=== PATIENT | female | born 1980 | race Caucasian/White ===

== ENCOUNTER 2016-09-10 19:33 | Emergency (ER) | payer BC ==
[~2016-09-10] VITALS: Ht 162.6 cm; Wt 70.3 kg
[2016-09-10 20:02] VITALS: BP 124/90
[2016-09-10] MEDS ORDERED: HYDROCODONE/APAP 10/325MG 1 EA TABLET PO ONE (20:30)
[2016-09-10] MEDS ORDERED: SILVER SULFADIAZINE CREAM 25 GM TUBE TP ONE (20:30)
[2016-09-10] MEDS ORDERED: GENTAMICIN 0.1% OINT 15 GM TUBE TP ONE (20:30)
[2016-09-10] MEDS ORDERED: SILVER SULFADIAZINE CREAM 25 GM TUBE ONE (20:41)
[2016-09-10] MEDS ORDERED: HYDROCODONE/APAP 10/325MG 1 EA TABLET ONE (20:41)
== END 2016-09-10 21:29 | disposition home or self-care (01) ==
LOC: ER 19:37
DX: T23.201A Burn of second degree of right hand, unspecified site, initial encounter (principal); T20.10XA Burn of first degree of head, face, and neck, unspecified site, initial encounter; X10.2XXA Contact with fats and cooking oils, initial encounter; Y93.89 Activity, other specified; Y92.89 Other specified places as the place of occurrence of the external cause; Y99.8 Other external cause status; Z90.49 Acquired absence of other specified parts of digestive tract
CPT/HCPCS: 16020; 99284; A4606; Z7610